=== PATIENT | female | born 1985 | race American Indian/Alaskan Native ===

== ENCOUNTER 2022-04-20 16:33 | Emergency (ER) | payer OTHER ==
[2022-04-20 17:28] VITALS: BP 152/83
[2022-04-20 17:51] LABS: Bacteria,Urine 3+ /HPF (Negative); Bilirubin,Urine NEG (Negative); Blood,Urine SM (Negative); Color,Urine Yellow (Yellow); Mucus,Urine 2+ /HPF; Protein,Urine <15 mg/dL mg/dL (Negative)
[2022-04-20 18:08] LABS: HCG Qualitative,Urine Negative (Negative)
== END 2022-04-21 01:30 | disposition left against medical advice (07) ==
LOC: ED 16:33
DX: R53.1 Weakness (principal); R11.0 Nausea; Z53.21 Procedure and treatment not carried out due to patient leaving prior to being seen by health care provider
CPT/HCPCS: 81001; 81025